=== PATIENT | female | born 1940 | race Caucasian/White ===

== ENCOUNTER 2017-12-11 20:02 | Emergency (ER) | payer MEDICARE, OTHER ==
[2017-12-11 20:06] VITALS: RESP 18
[2017-12-11 21:02] LABS: Appearance,Urine Cloudy (Clear); Bacteria,Urine Rare /hpf; Bilirubin,Urine Negative (Negative); Blood,Urine Moderate (Negative); Color,Urine Colorless; Glucose,Urine (UA) Negative (Negative); Ketones,Urine Negative (Negative); Leukocyte Esterase,Urine Large (Negative); Mucus,Urine Rare /hpf; Nitrite,Urine Negative (Negative); PH, Urine 6.5 (5.0-8.0); Protein,Urine 1+ (Negative); RBC,Urine 4 /hpf (0-5); Specific Gravity,Urine 1.005 (1.001-1.035); Squamous Epithelial Cell,Urine <1 /hpf (0-4); Urobilinogen,Urine <2.0 mg/dL (<2.0); WBC,Urine 23 /hpf (0-5)
[2017-12-11] MEDS ORDERED: PHENAZOPYRIDINE 100 MG TAB PO STA (21:32)
[2017-12-11] MEDS ORDERED: CEPHALEXIN 500MG STARTER PACK 4 CAP BTL PO STA (21:32)
--- NOTE | 2017-12-11 21:36 | ED ---
Female Urogenital HPI - General Chief complaint: Vaginal Bleeding Stated complaint: Female Source: patient Mode of arrival: ambulatory Limitations: no limitations - History of Present Illness Initial comments: Gemma is a 77-year-old female with past medical history of anal cancer which was treated with radiation and chemotherapy. She presents to the emergency department today for evaluation of dysuria and vaginal discomfort. Patient reports that she was recently admitted for GI bleed, she was evaluated at that time and has followed up with urology, she underwent a cystoscopy and was told that she may have mild bladder prolapse secondary to previous radiation and pregnancies. She was advised to follow up with gynecology and she has an appointment scheduled for next week. Patient reports that over the past 2 days she's been having pressure, urinary frequency, dysuria and has noticed some blood in her urine. In addition she is concerned that she may be having some vaginal bleeding and is concerned this may be related to vaginal prolapse. Patient reports she has mild urinary incontinence at baseline but has been more incontinent of urine over the past 2-3 days she reports that she has a sudden urge to urinate when she gets up to walk to the bathroom she has dribbling of urine. Patient denies any fevers, chills, nausea or vomiting. She's been eating or drinking her usual diet. - Related Data Home Medications Medication Instructions Recorded Confirmed Atorvastatin [Lipitor] 10 mg PO HS 11/27/15 11/27/15 Ferrous Sulfate [Iron (65 MG 325 mg PO DAILY 11/27/15 11/27/15 Elemental)] Hydrocodone/Acetaminophen 1 tab PO Q6H 11/27/15 11/27/15 [Hydrocodone-Acetamin 7.5-325] Lisinopril 20 mg PO DAILY 11/27/15 11/27/15 metFORMIN HCL [Metformin HCl ER] 500 mg PO DAILY 11/27/15 11/27/15 Previous Rx's Medication Instructions Recorded Hydrocortisone Suppository 25 mg RECTAL BID #14 supp 11/29/15 [Anusol-Hc] Polyethylene Glycol 3350 [Miralax] 1 tbsp PO DAILY #255 gm 11/29/15 Sennosides/Docusate Sodium 1 tab PO DAILY #30 tab 11/29/15 [Violette-Colace Tablet] Triamterene-Hctz 37.5-25Mg 1 each PO DAILY cap 11/29/15 [Dyazide 37.5-25 Capsule] Cephalexin [Keflex] 500 mg PO Q6HR 5 Days #20 cap 12/11/17 Phenazopyridine [Pyridium] 200 mg PO TID #9 tablet 12/11/17 Allergies Allergy/AdvReac Type Severity Reaction Status Date / Time Sulfa (Sulfonamide Allergy Unknown Verified 12/11/17 20:06 Antibiotics) Review of Systems ROS Statement: Those systems with pertinent positive or pertinent negative responses have been documented in the HPI. ROS Other: All systems not noted in ROS Statement are negative. Past Medical History Past Medical History: Cancer, Hypertension Additional Past Medical History / Comment(s): rectal cancer with radiation treatment. "borderline diabetic" History of Any Multi-Drug Resistant Organisms: None Reported Past Surgical History: Appendectomy, Joint Replacement, Tonsillectomy, Tubal Ligation Additional Past Surgical History / Comment(s): hemorrhoid surgery Past Anesthesia/Blood Transfusion Reactions: No Reported Reaction Past Psychological History: No Psychological Hx Reported Smoking Status: Former smoker Past Alcohol Use History: None Reported Past Drug Use History: None Reported - Past Family History Mother Family Medical History: Diabetes Mellitus Father Family Medical History: COPD, Respiratory Disorder Additional Family Medical History / Comment(s): Emphysema General Exam - General Exam Comments Initial Comments: GENERAL: Patient is well-developed and well-nourished. Patient is nontoxic and well- hydrated and is in no distress. HENT: Normocephalic, Atraumatic. EYES: The sclera were anicteric and conjunctiva were pink and moist. PULMONARY: Unlabored respirations. CARDIOVASCULAR: There is a regular rate and rhythm ABDOMEN: Soft mild tenderness in the suprapubic region, no masses or hernias noted SKIN: Skin is pale, clear with no lesions or rashes and otherwise unremarkable. : External vaginal exam reveals atrophic dry vaginal mucosa with some guarding and irritation of the perineum. Vaginal prolapse noted. NEUROLOGIC: Patient is alert and oriented x3. MUSCULOSKELETAL: Normal extremities with adequate strength. Decreased range of motion of the bilateral hips, chronic. LYMPHATICS: No significant lymphadenopathy is noted PSYCHIATRIC: Normal psychiatric evaluation. Limitations: no limitations Limitations: no limitations Course Vital Signs 12/11/17 12/11/17 20:03 21:47 Temperature 97.9 F 97.4 F L Pulse Rate 88 67 Respiratory 18 18 Rate Blood Pressure 155/74 167/73 O2 Sat by Pulse 100 99 Oximetry Medical Decision Making - Medical Decision Making Patient was seen and evaluated, history was obtained from the patient Urine with evidence of urinary tract infection, culture ordered External vaginal exam reveals atrophic vaginal mucosa as well as irritated perineum changes consistent with previous radiation Patient is otherwise well-appearing. I will treat the urinary tract infection. 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 Supportive care measures were discussed. Return parameters discussed. - Lab Data Lab Results 12/11/17 Range/Units 20:47 Urine Color Colorless Urine Appearance Cloudy H (Clear) Urine pH 6.5 (5.0-8.0) Ur Specific Lawn 1.005 (1.001-1.035) Urine Protein 1+ H (Negative) Urine Glucose (UA) Negative (Negative) Urine Ketones Negative (Negative) Urine Blood Moderate H (Negative) Urine Nitrite Negative (Negative) Urine Bilirubin Negative (Negative) Urine Urobilinogen <2.0 (<2.0) mg/dL Ur Leukocyte Esterase Large H (Negative) Urine RBC 4 (0-5) /hpf Urine WBC 23 H (0-5) /hpf Ur Squamous Epith Cells <1 (0-4) /hpf Urine Bacteria Rare H (None) /hpf Urine Mucus Rare H (None) /hpf Disposition Clinical Impression: History of rectal cancer, UTI (urinary tract infection), Postmenopause atrophic vaginitis Disposition: HOME SELF-CARE Condition: Stable Instructions: Urinary Tract Infection in Women (DC), Vaginal Atrophy (ED) Prescriptions: Cephalexin [Keflex] 500 mg PO Q6HR 5 Days #20 cap Phenazopyridine [Pyridium] 200 mg PO TID #9 tablet Is patient prescribed a controlled substance at d/c from ED?: No Referrals: Dk Barillas DO [Primary Care Provider] - 1-2 days Time of Disposition: 21:36
[2017-12-11 21:48] VITALS: BP 167/73; PULSE 67; TEMP 97.4
== END 2017-12-11 21:55 | disposition home or self-care (01) ==
LOC: EC 20:02
DX: N39.0 Urinary tract infection, site not specified (principal); N95.2 Postmenopausal atrophic vaginitis; Z85.048 Personal history of other malignant neoplasm of rectum, rectosigmoid junction, and anus; I10 Essential (primary) hypertension; Z87.891 Personal history of nicotine dependence; Z90.49 Acquired absence of other specified parts of digestive tract; Z92.21 Personal history of antineoplastic chemotherapy; Z98.51 Tubal ligation status; Z98.890 Other specified postprocedural states; E11.9 Type 2 diabetes mellitus without complications; Z79.84 Long term (current) use of oral hypoglycemic drugs; Z79.899 Other long term (current) drug therapy; Z88.2 Allergy status to sulfonamides
CPT/HCPCS: 81001; 87086; 99284